=== PATIENT | male | born 1935 | race Caucasian/White ===

== ENCOUNTER 2017-11-05 09:53 | Day surgery (SDC) | payer MEDICARE, BC ==
[2017-11-04 10:44] LABS: BASOPHILS % (AUTO) 0.3 % (0-1); EOSINOPHILS # (AUTO) 0.2 X10'3 (0-0.9); EOSINOPHILS % (AUTO) 3.3 % (0-6); MEAN CORPUSCULAR HEMOGLOBIN 28.5 PG (27.0-31.0); MEAN CORPUSCULAR HGB CONC 33.1 % (33.0-36.5); MEAN PLATELET VOLUME 8.7 FL (7.4-10.4); MONOCYTES # (AUTO) 0.6 X10'3 (0-0.9); MONOCYTES % (AUTO) 8.1 % (2-12); NEUTROPHILS # (AUTO) 5.3 X10'3 (1.8-7.7); NEUTROPHILS % (AUTO) 74.3 % (42-75); PRE OP HEMATOCRIT 34.7 % (42.0-52.0); PRE OP HEMOGLOBIN 11.5 g/dL (14.0-17.9); PRE OP PLATELET COUNT 190 X10'3 (140-440); RED BLOOD COUNT 4.04 X10'6 (4.70-6.10); RED CELL DISTRIBUTION WIDTH 16.9 % (11.5-14.5)
[2017-11-04 10:56] LABS: PRE OP INR 1.1 INR; PRE OP PROTIME 11.6 SECONDS (9.0-12.0)
[2017-11-04 11:00] LABS: ALBUMIN 3.7 G/DL (3.4-5.0); BLOOD UREA NITROGEN 22 MG/DL (7-18); BUN/CREATININE RATIO 15.4 (5.4-32.0); CALCIUM 9.2 MG/DL (8.5-10.1); CHLORIDE 104 MMOL/L (99-107); CREATININE 1.43 MG/DL (0.60-1.10); PRE OP ANION GAP 10 (8-16); PRE OP GLUCOSE 124 MG/DL (70-104); PRE OP POTASSIUM 4.7 MMOL/L (3.4-5.1); PRE OP SODIUM 141 MMOL/L (135-145); TOTAL CARBON DIOXIDE 26.8 MMOL/L (24-32); eGFR 47 ML/MIN
[2017-11-05] VITALS (10 sets, daily range): BP systolic 145–185; BP diastolic 69–78
[~2017-11-05] VITALS: Ht 180.3 cm; Wt 106.5 kg
[~2017-11-05 09:53] MED LIST: APIX5TAB3 PO; ASPI81TA30 PO; FINA5TAB11 PO; GLIM1TAB46 PO; HYDR-569 PO; METO25TA6 PO; PRAV10TA38 PO; VALS160T29 PO
[2017-11-05] MEDS ORDERED: FURO-150 PO (10:37)
[2017-11-05] MEDS ORDERED: APIX5TAB3 PO (10:37)
[2017-11-05] MEDS ORDERED: AMLO5TAB PO (10:37)
[2017-11-05] MEDS ORDERED: fentaNYL/PF 50MCG/1 ML 2ML syringe ONE (12:24)
[2017-11-05] MEDS ORDERED: midazolam 2 mg/2 ml injection ONE (12:24)
[2017-11-05] MEDS ORDERED: LIDOcaine 1.5% w/epinephrine 1:200,000 5ml ampul ONE (12:24)
[2017-11-05] MEDS ORDERED: ceFAZolin 1GM/D5W- ADD-VANTAGE 50 ML IV ONE (12:25)
[2017-11-05] MEDS ORDERED: ceFAZolin 1000mg inj ONE (12:25)
[2017-11-05] MEDS ORDERED: normal saline 1000ml 1,000 ML IV ONE (15:20)
[2017-11-05] MEDS ORDERED: ceFAZolin 1GM/D5W- ADD-VANTAGE 50 ML IV SCH (19:30)
== END 2017-11-05 20:20 | disposition home or self-care (01) ==
LOC: SSTAY O 09:53
PROVIDERS: ATTEND Internal Medicine Cardiovascular Disease
DX: I49.5 Sick sinus syndrome (principal); I10 Essential (primary) hypertension; E78.5 Hyperlipidemia, unspecified; E11.9 Type 2 diabetes mellitus without complications; I25.10 Atherosclerotic heart disease of native coronary artery without angina pectoris; I48.0 Paroxysmal atrial fibrillation; I44.0 Atrioventricular block, first degree; I45.2 Bifascicular block; N40.0 Benign prostatic hyperplasia without lower urinary tract symptoms; M19.90 Unspecified osteoarthritis, unspecified site; E66.3 Overweight; I48.3 Typical atrial flutter; I35.8 Other nonrheumatic aortic valve disorders; I05.8 Other rheumatic mitral valve diseases; Z86.73 Personal history of transient ischemic attack (TIA), and cerebral infarction without residual deficits; Z96.653 Presence of artificial knee joint, bilateral; Z98.41 Cataract extraction status, right eye; Z98.42 Cataract extraction status, left eye; Z98.52 Vasectomy status; Z68.32 Body mass index [BMI] 32.0-32.9, adult; Z79.01 Long term (current) use of anticoagulants; Z79.899 Other long term (current) drug therapy; Z98.890 Other specified postprocedural states
CPT/HCPCS: 33208; 36415; 71046; 80048; 82948; 85025; 85610; 85730; 93005; 99152; 99153; A4565; A6449; C1785; C1894; C1898; J0690; J2250; J3010; J3490; J7030; A4620

== ENCOUNTER 2019-06-07 10:02 | Inpatient (IN) | payer MEDICARE, OTHER ==
[~2019-06-07] VITALS: Ht 149.9 cm; Wt 101.0 kg
[~2019-06-07 10:02] MED LIST changes: +AMLO5TAB PO; -ASPI81TA30 PO; +FURO-150 PO; +GLIM1TAB3 PO; -GLIM1TAB46 PO; -HYDR-569 PO; -METO25TA6 PO; -VALS160T29 PO; +VALS160T30 PO
[2019-06-07] MEDS ORDERED: furosemide 10 MG/1 ML 10ml inj IV ONE (10:25)
[2019-06-07 10:58] LABS: BASOPHILS % (AUTO) 0.2 % (0-1); EOSINOPHILS % (AUTO) 0.1 % (0-6); HEMATOCRIT 32.5 % (42.0-52.0); HEMOGLOBIN 10.6 g/dl (14.0-17.9); LYMPHOCYTES # (AUTO) 0.7 X10'3 (1.1-4.8); LYMPHOCYTES % (AUTO) 4.7 % (21-51); MEAN CORPUSCULAR HEMOGLOBIN 26.8 PG (27.0-31.0); MEAN CORPUSCULAR HGB CONC 32.6 g/dL (33.0-36.5); MEAN CORPUSCULAR VOLUME 82.2 FL (78-98); MEAN PLATELET VOLUME 7.9 FL (7.4-10.4); MONOCYTES # (AUTO) 1.1 X10'3 (0-0.9); MONOCYTES % (AUTO) 7.2 % (2-12); NEUTROPHILS # (AUTO) 13.2 X10'3 (1.8-7.7); NEUTROPHILS % (AUTO) 87.8 % (42-75); PLATELET COUNT 276 X10'3 (140-440); RED BLOOD COUNT 3.96 X10'6 (4.70-6.10); WHITE BLOOD COUNT 15.1 X10'3 (4.5-11.0)
[2019-06-07 11:17] LABS: ALANINE AMINOTRANSFERASE 53 U/L (12-78); ALBUMIN 2.5 G/DL (3.4-5.0); ALBUMIN/GLOBULIN RATIO 0.5 (1.1-1.5); ALKALINE PHOSPHATASE 167 IU/L (46-116); ANION GAP 10 (8-16); ASPARTATE AMINO TRANSFERASE 35 U/L (10-37); BILIRUBIN,TOTAL 1.9 MG/DL (0.1-1.0); BLOOD UREA NITROGEN 30 MG/DL (7-18); BUN/CREATININE RATIO 21.9 (5.4-32.0); CALCIUM 8.9 MG/DL (8.5-10.1); CHLORIDE 104 MMOL/L (99-107); CREATININE 1.37 MG/DL (0.60-1.10); GLUCOSE 148 MG/DL (70-104); POTASSIUM 4.1 MMOL/L (3.5-5.1); SODIUM 141 MMOL/L (135-145); TOTAL CARBON DIOXIDE 26.7 MMOL/L (24-32); TOTAL PROTEIN 7.2 G/DL (6.4-8.2); eGFR 50 ML/MIN
[2019-06-07] MEDS ORDERED: CefTRIAXone 2gm/D5W 50ml 50 ML IV ONE (11:25)
[2019-06-07 11:27] LABS: ANISOCYTOSIS 2+; LARGE PLATELETS FEW; PLATELET ESTIMATE NORMAL
[2019-06-07] MEDS ORDERED: LOSA25TA96 PO (12:05)
[2019-06-07] MEDS ORDERED: magnesium 2GM in 50ml NS 50 ML IV PRN (12:50)
[2019-06-07] MEDS ORDERED: dextrose 50%-water 50ml dispensing syringe IV PRN ×2 (12:50)
[2019-06-07] MEDS ORDERED: acetaminophen 650mg rectal suppository RC PRN (12:50)
[2019-06-07] MEDS ORDERED: insulin Lispro (HumaLOG) vial - multi-dose SQ SCH (12:50)
[2019-06-07] MEDS ORDERED: acetaminophen 325mg tablet PO PRN (12:50)
[2019-06-07] MEDS ORDERED: HYDROcodone/acetaminophen 5mg/325mg tablet PO PRN (12:50)
[2019-06-07] MEDS ORDERED: potassium CL 10mEq/100ml bag 100 ML IV PRN ×2 (12:50)
[2019-06-07] MEDS ORDERED: bisacodyl 10mg suppository rectal RC PRN (12:50)
[2019-06-07] MEDS ORDERED: HYDROcodone/acetaminophen 10/325mg tab PO PRN (12:50)
[2019-06-07] MEDS ORDERED: morphine 2 MG/ML inj. syringe IV PRN ×2 (12:50)
[2019-06-07] MEDS ORDERED: ondansetron/PF 4mg/2ml inj IV PRN (12:50)
[2019-06-07] MEDS ORDERED: dextrose ORAL solution 15 GM/59 ML bottle PO PRN ×2 (12:50)
[2019-06-07] MEDS ORDERED: magnesium 4gm in 100ml NS 100 ML IV PRN (12:50)
[2019-06-07] MEDS ORDERED: glucagon, human recombinant 1mg kit SUBCUT PRN (12:50)
[2019-06-07] MEDS ORDERED: MESSAGE TO PHARMACY PO ONE (12:50)
[2019-06-07] MEDS: K and/or MAG REPLACEMENT MC SCH (12:50)
[2019-06-07] MEDS ORDERED: magnesium Cl slow-release 64mg tablet PO PRN (12:50)
[2019-06-07] MEDS ORDERED: magnesium hydroxide 30ml (MOM) UD suspension PO PRN (12:50)
[2019-06-07] MEDS ORDERED: potassium Cl 20 mEq SR tablet PO PRN ×2 (12:50)
[2019-06-07] MEDS ORDERED: mag hydrox/Alum hydrox/simeth 30ml oral suspension PO PRN (12:50)
[2019-06-07] MEDS ORDERED: VANCOmycin 1250MG/NS 250ml Bag 250 ML IV SCH (13:08)
[2019-06-07] MEDS: normal saline 1000ml 1,000 ML IV SCH (13:25)
--- NOTE | 2019-06-07 14:22 | NUR ---
RECEIVED REPORT FROM ANA
[2019-06-07 14:30] VITALS: BP 152/70
[2019-06-07] MEDS: cefepime 1GM in D5W 50mL 50 ML IV SCH (17:14)
[2019-06-07 18:00] VITALS: BP 124/54
--- NOTE | 2019-06-07 18:10 | NUR ---
Received report from CARLOS De La Cruz. Assumed patient care.
--- NOTE | 2019-06-07 18:15 | NUR ---
Problems reprioritized. Patient report given, questions answered & plan of care reviewed with BILLY GONZALEZ.
[2019-06-07] MEDS: heparin, porcine 5000 units/ml vial SQ SCH (19:59)
[2019-06-07] MEDS: pravastatin 40mg tablet PO SCH (20:03)
[2019-06-07] MEDS: amLODIPine 5mg tablet PO SCH (20:03)
[2019-06-07] MEDS: apixaban 5mg tablet PO SCH (20:03)
[2019-06-07] MEDS: insulin glargine (Lantus) pen - multi-dose SQ SCH (21:00)
[2019-06-07 22:00] VITALS: BP 151/71
[2019-06-08] MEDS: cefepime 1GM in D5W 50mL 50 ML IV SCH ×3 (00:29→15:42)
[2019-06-08 05:44] VITALS: BP 144/65
[2019-06-08 06:16] LABS: BASOPHILS % (AUTO) 0.2 % (0-1); EOSINOPHILS # (AUTO) 0.1 X10'3 (0-0.9); EOSINOPHILS % (AUTO) 0.8 % (0-6); HEMATOCRIT 29.9 % (42.0-52.0); HEMOGLOBIN 9.8 g/dl (14.0-17.9); LYMPHOCYTES % (AUTO) 8.3 % (21-51); MEAN CORPUSCULAR HEMOGLOBIN 26.5 PG (27.0-31.0); MEAN CORPUSCULAR HGB CONC 32.6 g/dL (33.0-36.5); MEAN CORPUSCULAR VOLUME 81.3 FL (78-98); MONOCYTES % (AUTO) 7.9 % (2-12); NEUTROPHILS # (AUTO) 10.4 X10'3 (1.8-7.7); NEUTROPHILS % (AUTO) 82.8 % (42-75); PLATELET COUNT 263 X10'3 (140-440); RED BLOOD COUNT 3.67 X10'6 (4.70-6.10); RED CELL DISTRIBUTION WIDTH 18.8 % (11.5-14.5); WHITE BLOOD COUNT 12.5 X10'3 (4.5-11.0)
--- NOTE | 2019-06-08 06:19 | NUR ---
Patient report given, questions answered and plan of care reviewed with CARLOS Richardson.
--- NOTE | 2019-06-08 06:34 | NUR ---
Patient in room [facility]TH[facility] 4009. I have received report from Dylan GONZALEZ and had the opportunity to ask questions and assume patient care.
--- NOTE | 2019-06-08 06:35 | NUR ---
Patient in room [facility]TH[facility] 4009. I have received report from Ethel GONZALEZ and had the opportunity to ask questions and assume patient care.
[2019-06-08 06:56] LABS: ALANINE AMINOTRANSFERASE 41 U/L (12-78); ALBUMIN 2.1 G/DL (3.4-5.0); ALBUMIN/GLOBULIN RATIO 0.5 (1.1-1.5); ALKALINE PHOSPHATASE 145 IU/L (46-116); ANION GAP 9 (8-16); ASPARTATE AMINO TRANSFERASE 30 U/L (10-37); BILIRUBIN,TOTAL 1.2 MG/DL (0.1-1.0); BLOOD UREA NITROGEN 28 MG/DL (7-18); BUN/CREATININE RATIO 22.2 (5.4-32.0); CALCIUM 8.5 MG/DL (8.5-10.1); CHLORIDE 107 MMOL/L (99-107); CHOLESTEROL 56 MG/DL (0-200); CREATININE 1.26 MG/DL (0.60-1.10); GLUCOSE 86 MG/DL (70-104); HDL CHOLESTEROL 14 MG/DL (35-60); LDL CHOLESTEROL 33 MG/DL (50-100); MAGNESIUM 2.1 MG/DL (1.5-2.4); PHOSPHORUS 3.4 MG/DL (2.3-4.5); POTASSIUM 3.7 MMOL/L (3.5-5.1); SODIUM 142 MMOL/L (135-145); TOTAL CARBON DIOXIDE 26.2 MMOL/L (24-32); TOTAL PROTEIN 6.5 G/DL (6.4-8.2); TRIGLYCERIDES 59 MG/DL (20-135); eGFR 55 ML/MIN
[2019-06-08] MEDS: K and/or MAG REPLACEMENT MC SCH (07:02)
[2019-06-08] MEDS: apixaban 5mg tablet PO SCH ×2 (07:20→19:37)
[2019-06-08] MEDS: furosemide 20MG tablet PO SCH (07:21)
[2019-06-08] MEDS: amLODIPine 5mg tablet PO SCH (07:23)
[2019-06-08] MEDS: losartan 25mg tablet PO SCH (07:24)
[2019-06-08] MEDS: heparin, porcine 5000 units/ml vial SQ SCH ×2 (07:27→19:42)
[2019-06-08 07:49] LABS: PLATELET ESTIMATE NORMAL
[2019-06-08 07:50] LABS: ANISOCYTOSIS 2+; POLYCHROMASIA FEW
[2019-06-08] MEDS: pravastatin 40mg tablet PO SCH (07:50)
[2019-06-08] MEDS: finasteride 5mg tablet PO SCH (07:50)
[2019-06-08 08:12] VITALS: BP 153/68
[2019-06-08] MEDS: normal saline 1000ml 1,000 ML IV SCH ×2 (08:50→15:51)
[2019-06-08 10:00] VITALS: BP 119/46
--- NOTE | 2019-06-08 10:30 | NUR ---
Bedside with patient,along with patients and hospitalist to discuss patients wishes for Code status, all options and scenarios were explained in detail to both patient and spouse with understanding that patient wishes to be DNR
--- NOTE | 2019-06-08 11:32 | NUR ---
Student Medication Administration:For this medication-pass time frame [id number], all medications were reviewed, dispensed, administered and documented per hospital policy by Ayaka Gamboa. Student documentation:I have reviewed and agree with all interventions, assessments performed and documented by Ayaka Gamboa.
--- NOTE | 2019-06-08 12:10 | NUR ---
Patient report given TO Dylan GONZALEZ, questions answered & plan of care reviewed with .
[2019-06-08] MEDS: acetaminophen 325mg tablet PO PRN (15:45)
[2019-06-08 18:04] VITALS: BP 142/62
--- NOTE | 2019-06-08 18:15 | NUR ---
RECEIVED REPORT FROM MARTHA GONZALEZ AND ASSUMED PATIENT CARE
--- NOTE | 2019-06-08 18:22 | NUR ---
Problems reprioritized. Patient report given, questions answered & plan of care reviewed with Boris GONZALEZ.
[2019-06-08] MEDS: lactobacillus rhamnosus 10,000 MMU CELLS/CAPSULE PO SCH (19:37)
[2019-06-08] MEDS: diphenhydrAMINE 25mg capsule PO PRN (19:38)
--- NOTE | 2019-06-08 19:43 | NUR ---
PATIENT REFUSING HEPARIN. STATES HE DOESNT FEEL HE NEEDS IT SINCE HE IS "WALKING MORE" AND HIS DOESNT WANT HIM TO TAKE IT. EDUCATED PATIENT ON RISKS OF BLOOD CLOTS AND IMMOBILITY. STATES HE WILL DISCUSS WITH IN AM.
[2019-06-08] MEDS: insulin glargine (Lantus) pen - multi-dose SQ SCH (21:00)
[2019-06-08 22:00] VITALS: BP 150/86
[2019-06-09] MEDS: cefepime 1GM in D5W 50mL 50 ML IV SCH ×4 (00:29→23:16)
[2019-06-09] MEDS ORDERED: VANCOMYCIN LEVEL IV ONE (01:30)
[2019-06-09 05:37] LABS: BASOPHILS % (AUTO) 0.2 % (0-1); EOSINOPHILS # (AUTO) 0.2 X10'3 (0-0.9); EOSINOPHILS % (AUTO) 1.4 % (0-6); HEMATOCRIT 31.6 % (42.0-52.0); HEMOGLOBIN 10.1 g/dl (14.0-17.9); LYMPHOCYTES % (AUTO) 8.6 % (21-51); MEAN CORPUSCULAR HEMOGLOBIN 26.5 PG (27.0-31.0); MEAN CORPUSCULAR VOLUME 82.8 FL (78-98); MONOCYTES # (AUTO) 0.9 X10'3 (0-0.9); MONOCYTES % (AUTO) 7.8 % (2-12); NEUTROPHILS # (AUTO) 9.4 X10'3 (1.8-7.7); PLATELET COUNT 294 X10'3 (140-440); RED BLOOD COUNT 3.81 X10'6 (4.70-6.10); RED CELL DISTRIBUTION WIDTH 19.2 % (11.5-14.5); WHITE BLOOD COUNT 11.5 X10'3 (4.5-11.0)
[2019-06-09 05:43] LABS: ALANINE AMINOTRANSFERASE 41 U/L (12-78); ALBUMIN 2.1 G/DL (3.4-5.0); ALBUMIN/GLOBULIN RATIO 0.5 (1.1-1.5); ALKALINE PHOSPHATASE 176 IU/L (46-116); ANION GAP 8 (8-16); ASPARTATE AMINO TRANSFERASE 34 U/L (10-37); BILIRUBIN,TOTAL 1.2 MG/DL (0.1-1.0); BLOOD UREA NITROGEN 28 MG/DL (7-18); CALCIUM 8.5 MG/DL (8.5-10.1); CHLORIDE 107 MMOL/L (99-107); CREATININE 1.22 MG/DL (0.60-1.10); GLUCOSE 108 MG/DL (70-104); MAGNESIUM 2.2 MG/DL (1.5-2.4); PHOSPHORUS 3.5 MG/DL (2.3-4.5); POTASSIUM 3.7 MMOL/L (3.5-5.1); SODIUM 140 MMOL/L (135-145); TOTAL CARBON DIOXIDE 24.6 MMOL/L (24-32); TOTAL PROTEIN 6.7 G/DL (6.4-8.2); eGFR 57 ML/MIN
[2019-06-09 06:00] VITALS: BP 153/65
--- NOTE | 2019-06-09 06:23 | NUR ---
REPORT GIVEN TO MARTHA GONZALEZ
--- NOTE | 2019-06-09 07:17 | NUR ---
Patient in room [facility]TH[facility] 4009. I have received report from Yamilet GONZALEZ and had the opportunity to ask questions and assume patient care.
[2019-06-09 07:42] LABS: ANISOCYTOSIS 2+; GIANT PLATELET FEW; LARGE PLATELETS FEW; PLATELET ESTIMATE NORMAL
[2019-06-09] MEDS: K and/or MAG REPLACEMENT MC SCH (07:43)
[2019-06-09] MEDS: acetaminophen 325mg tablet PO PRN ×2 (07:55→19:46)
[2019-06-09] MEDS: lactobacillus rhamnosus 10,000 MMU CELLS/CAPSULE PO SCH ×2 (07:55→19:43)
[2019-06-09] MEDS: losartan 25mg tablet PO SCH (07:56)
[2019-06-09] MEDS: apixaban 5mg tablet PO SCH ×2 (07:56→19:43)
[2019-06-09] MEDS: amLODIPine 5mg tablet PO SCH (07:56)
[2019-06-09] MEDS: furosemide 20MG tablet PO SCH (07:56)
[2019-06-09] MEDS: pravastatin 40mg tablet PO SCH (07:58)
[2019-06-09] MEDS: finasteride 5mg tablet PO SCH (07:59)
[2019-06-09 10:00] VITALS: BP 149/63
[2019-06-09 18:00] VITALS: BP 158/72
--- NOTE | 2019-06-09 18:31 | NUR ---
Problems reprioritized. Patient report given, questions answered & plan of care reviewed with Panfilo GONZALEZ.
[2019-06-09] MEDS: normal saline 1000ml 1,000 ML IV SCH (19:24)
[2019-06-09] MEDS: insulin glargine (Lantus) pen - multi-dose SQ SCH (20:58)
[2019-06-09 22:00] VITALS: BP 148/70
[2019-06-10] MEDS: diphenhydrAMINE 25mg capsule PO PRN (00:52)
[2019-06-10 02:16] LABS: CLARITY,URINE CLEAR (Clear); COLOR,URINE AMBER (Yellow); GLUCOSE, URINE NEGATIVE (Neg); KETONES,URINE NEGATIVE (Neg); LEUKOCYTE ESTERASE ,URINE NEGATIVE (Neg); NITRITES, URINE NEGATIVE (Neg); OCCULT BLOOD,URINE NEGATIVE (Neg); PH,URINE 5.5 (4.8-8.0); PROTEIN,URINE 30 mg/dl (Neg); UA COLLECTION TYPE VOIDED
[2019-06-10 02:22] LABS: BACTERIA,URINE NONE SEEN /HPF (Neg); MUCUS STRANDS NONE SEEN /LPF (Neg); RBC,URINE NONE SEEN /HPF (0-2); SQUAMOUS EPITHELIAL CELL,UR FEW /LPF (FEW); WBC,URINE NONE SEEN /HPF (0-4)
[2019-06-10 06:00] VITALS: BP 167/70
--- NOTE | 2019-06-10 06:00 | NUR ---
Patient in room [facility]THO 4009. I have received report from Drake GONZALEZ and had the opportunity to ask questions and assume patient care.
--- NOTE | 2019-06-10 06:33 | NUR ---
reported to days. noted pt resting w/o distress on his side. anticipate transfer to [facility] today
[2019-06-10 07:03] LABS: BASOPHILS # (AUTO) 0.1 X10'3 (0-0.2); BASOPHILS % (AUTO) 0.7 % (0-1); EOSINOPHILS # (AUTO) 0.3 X10'3 (0-0.9); EOSINOPHILS % (AUTO) 2.2 % (0-6); HEMATOCRIT 32.5 % (42.0-52.0); HEMOGLOBIN 10.3 g/dl (14.0-17.9); LYMPHOCYTES # (AUTO) 0.9 X10'3 (1.1-4.8); LYMPHOCYTES % (AUTO) 7.4 % (21-51); MEAN CORPUSCULAR HEMOGLOBIN 26.3 PG (27.0-31.0); MEAN CORPUSCULAR HGB CONC 31.8 g/dL (33.0-36.5); MEAN PLATELET VOLUME 8.1 FL (7.4-10.4); MONOCYTES # (AUTO) 0.8 X10'3 (0-0.9); NEUTROPHILS # (AUTO) 9.8 X10'3 (1.8-7.7); NEUTROPHILS % (AUTO) 82.7 % (42-75); PLATELET COUNT 336 X10'3 (140-440); RED BLOOD COUNT 3.92 X10'6 (4.70-6.10); RED CELL DISTRIBUTION WIDTH 18.8 % (11.5-14.5); WHITE BLOOD COUNT 11.8 X10'3 (4.5-11.0)
[2019-06-10 07:19] LABS: ALANINE AMINOTRANSFERASE 37 U/L (12-78); ALBUMIN 2.1 G/DL (3.4-5.0); ALBUMIN/GLOBULIN RATIO 0.4 (1.1-1.5); ALKALINE PHOSPHATASE 211 IU/L (46-116); ANION GAP 12 (8-16); ASPARTATE AMINO TRANSFERASE 31 U/L (10-37); BILIRUBIN,TOTAL 1.2 MG/DL (0.1-1.0); BLOOD UREA NITROGEN 25 MG/DL (7-18); BUN/CREATININE RATIO 22.5 (5.4-32.0); CALCIUM 8.6 MG/DL (8.5-10.1); CHLORIDE 108 MMOL/L (99-107); CREATININE 1.11 MG/DL (0.60-1.10); GLUCOSE 132 MG/DL (70-104); MAGNESIUM 2.3 MG/DL (1.5-2.4); PHOSPHORUS 3.2 MG/DL (2.3-4.5); POTASSIUM 3.9 MMOL/L (3.5-5.1); SODIUM 144 MMOL/L (135-145); TOTAL CARBON DIOXIDE 24.5 MMOL/L (24-32); eGFR 63 ML/MIN
[2019-06-10 07:42] LABS: ANISOCYTOSIS 2+; PLATELET ESTIMATE NORMAL
[2019-06-10] MEDS: lactobacillus rhamnosus 10,000 MMU CELLS/CAPSULE PO SCH (07:51)
[2019-06-10] MEDS: apixaban 5mg tablet PO SCH (07:52)
[2019-06-10] MEDS: pravastatin 40mg tablet PO SCH (07:52)
[2019-06-10] MEDS: furosemide 20MG tablet PO SCH (07:52)
[2019-06-10] MEDS: amLODIPine 5mg tablet PO SCH (07:53)
[2019-06-10] MEDS: losartan 25mg tablet PO SCH (07:53)
[2019-06-10] MEDS: finasteride 5mg tablet PO SCH (07:55)
[2019-06-10] MEDS: K and/or MAG REPLACEMENT MC SCH (08:00)
[2019-06-10] MEDS: cefepime 1GM in D5W 50mL 50 ML IV SCH (08:00)
[2019-06-10] MEDS: acetaminophen 325mg tablet PO PRN ×2 (08:09→13:16)
[2019-06-10 10:00] VITALS: BP 152/58
--- NOTE | 2019-06-10 13:55 | NUR ---
Patient stable for transfer to [facility] today. IV out and all belongings sent with patient.
[2019-06-11] MEDS ORDERED: VANCOMYCIN LEVEL IV ONE (01:30)
== END 2019-06-10 13:40 | DRG 872 ==
LOC: ER 10:03 → ED HOLD 13:00 → ORTHO 4S 14:30
PROVIDERS: ADMIT Family Medicine; ATTEND Family Medicine
DX: A41.9 Sepsis, unspecified organism (principal); L03.116 Cellulitis of left lower limb; I48.11 Longstanding persistent atrial fibrillation; Z68.42 Body mass index [BMI] 45.0-49.9, adult; E44.0 Moderate protein-calorie malnutrition; I87.2 Venous insufficiency (chronic) (peripheral); I12.9 Hypertensive chronic kidney disease with stage 1 through stage 4 chronic kidney disease, or unspecified chronic kidney disease; N18.9 Chronic kidney disease, unspecified; Z96.653 Presence of artificial knee joint, bilateral; E11.22 Type 2 diabetes mellitus with diabetic chronic kidney disease; E78.00 Pure hypercholesterolemia, unspecified; E78.5 Hyperlipidemia, unspecified; Z66 Do not resuscitate; Z79.01 Long term (current) use of anticoagulants; Z82.49 Family history of ischemic heart disease and other diseases of the circulatory system; Z86.73 Personal history of transient ischemic attack (TIA), and cerebral infarction without residual deficits; Z95.0 Presence of cardiac pacemaker
CPT/HCPCS: 36415; 73630; 80053; 80061; 81001; 82948; 83036; 83605; 83735; 83880; 84100; 84145; 85025; 87040; 87081; 93306; 96365; 96375; 97110; 97116; 97161; 97530; 99285; G0378; J0692; J0696; J1644; J1815; J1940; J3370; J7030; Q0163

== ENCOUNTER 2022-09-11 12:17 | Outpatient (CLI) | payer MEDICARE, OTHER ==
[~2022-09-11 12:17] MED LIST changes: +AMA1T PO; -GLIM1TAB3 PO; +LOSA25TA96 PO; -VALS160T30 PO
== END 2022-09-11 23:59 | disposition home or self-care (01) ==
LOC: CARD DIAG 12:17
PROVIDERS: ATTEND Internal Medicine Cardiovascular Disease
DX: I08.8 Other rheumatic multiple valve diseases (principal); I25.10 Atherosclerotic heart disease of native coronary artery without angina pectoris
CPT/HCPCS: 93306

== ENCOUNTER 2024-02-15 12:06 | Emergency (ER) | payer MEDICARE, OTHER ==
[~2024-02-15] VITALS: Ht 180.3 cm; Wt 87.1 kg
[~2024-02-15 12:06] MED LIST changes: -AMA1T PO; +GLIM1TAB57 PO; +LOSA-415 PO; -LOSA25TA96 PO
[2024-02-15] MEDS: LIDOcaine 1% 30ml preserv. free vial SQ STA (14:55)
[2024-02-15] MEDS ORDERED: CEPH-585 PO (15:32)
[2024-02-15] MEDS: cephalexin 250mg capsule PO ONE (15:56)
[2024-02-15] MEDS: silver nitrate applicator stick TP ONE (16:47)
[2024-02-19 11:08] VITALS: BP 155/71; PULSE 74; RESP 18; TEMP 98.1; O2SAT 95
== END 2024-02-15 16:52 | disposition home or self-care (01) ==
LOC: ER 12:06
DX: S91.212A Laceration without foreign body of left great toe with damage to nail, initial encounter (principal); I48.91 Unspecified atrial fibrillation; E78.00 Pure hypercholesterolemia, unspecified; I10 Essential (primary) hypertension; E11.9 Type 2 diabetes mellitus without complications; Z79.899 Other long term (current) drug therapy; Z79.2 Long term (current) use of antibiotics; X58.XXXA Exposure to other specified factors, initial encounter; Y93.89 Activity, other specified; Y92.89 Other specified places as the place of occurrence of the external cause; Y99.8 Other external cause status
CPT/HCPCS: 11760; 73660; 99285; A6258; A6402; L3260; Z7610; A6449